=== PATIENT | male | born 1985 | race Caucasian/White ===

== ENCOUNTER 2022-08-08 09:35 | Observation (INO) | payer OTHER ==
[~2022-08-08] VITALS: Ht 182.9 cm; Wt 77.2 kg
[2022-08-08 09:55] LABS: BASOPHILS % (AUTO) 1.1 % (0.0-5.0); EOSINOPHILS % (AUTO) 1.9 % (0.0-8.0); HEMATOCRIT 45.2 % (42-54); LYMPHOCYTES % (AUTO) 21.8 % (21.0-51.0); MEAN CORPUSCULAR HEMOGLOBIN 29.8 pg (27.0-33.0); MEAN CORPUSCULAR HGB CONC 34.1 g/dL (32.0-36.0); MEAN CORPUSCULAR VOLUME 87.4 fL (79-99); MONOCYTES % (AUTO) 8.3 % (3.0-13.0); NEUTROPHILS % (AUTO) 66.7 % (40.0-77.0); PLATELET COUNT (AUTO) 216 K/uL (130-400); RED BLOOD CELL COUNT(AUTO) 5.17 MIL/uL (4.50-6.20); RED CELL DISTRIBUTION WIDTH 12.3 % (11.0-15.5); WHITE BLOOD COUNT (AUTO) 6.4 K/uL (4.8-10.8)
[2022-08-08 10:17] LABS: POTASSIUM 3.9 mmol/L (3.5-5.1)
[2022-08-08 10:21] LABS: ALBUMIN 4.4 g/dL (3.5-5.0); TOTAL PROTEIN, SERUM 7.5 g/dL (6.0-8.3)
[2022-08-08] MEDS ORDERED: ASPIRIN 325MG EC TAB PO ONE (10:30)
[2022-08-08] MEDS: NITROGLYCERIN 0.4 MG SL TAB SL PRN (11:02)
[2022-08-08] MEDS ORDERED: ACETAMINOPHEN 325 MG TAB PO PRN ×2 (12:30)
[2022-08-08] MEDS ORDERED: ONDANSETRON 4MG INJ IV PRN (12:30)
[2022-08-08 14:15] LABS: CREATINE KINASE, TOTAL 111 U/L (21-232); MYOGLOBIN 51 ng/mL (10-92)
[2022-08-08 14:30] LABS: APPEARANCE,URINE CLEAR (CLEAR); BILIRUBIN,URINE NEGATIVE (NEGATIVE); COLOR,URINE COLORLESS (YELLOW); GLUCOSE, URINE (UA) NEGATIVE (NEGATIVE); KETONES,URINE NEGATIVE (NEGATIVE); LEUKOCYTE ESTERASE ,URINE NEGATIVE Leu/uL (NEGATIVE); NITRATE,URINE NEGATIVE (NEGATIVE); OCCULT BLOOD,URINE NEGATIVE (NEGATIVE); PROTEIN,URINE NEGATIVE (NEGATIVE); UROBILINOGEN,URINE 0.2 mg/dL (0.2-1.0)
[2022-08-08 14:32] LABS: RBC,URINE 0-1 /HPF (0-1); SQUAMOUS EPITHELIAL CELL,UR RARE /HPF (0-2); WBC,URINE 0-1 /HPF (0-1)
[2022-08-08 14:38] LABS: AMPHET/METH SCREEN,URINE NEGATIVE (NEGATIVE); BARBITURATE SCREEN, URINE NEGATIVE (NEGATIVE); BENZODIAZEPINES SCREEN,URINE NEGATIVE (NEGATIVE); CANNABINOID SCREEN,URINE NEGATIVE (NEGATIVE); COCAINE SCREEN,URINE NEGATIVE (NEGATIVE); OPIATE SCREEN,URINE NEGATIVE (NEGATIVE); PHENCYCLIDINE SCREEN,URINE NEGATIVE (NEGATIVE)
[2022-08-08] MEDS ORDERED: MORPHINE 2 MG SYG IVP PRN (15:00)
[2022-08-08 16:00] VITALS: BP 147/82
[2022-08-08 17:36] LABS: CHOLESTEROL 156 mg/dL (<200); HDL CHOLESTEROL 56 mg/dL (29-71); LDL DIRECT 93 mg/dL (0-99); TRIGLYCERIDES 38 mg/dL (30-200)
[2022-08-08] MEDS ORDERED: IOHEXOL 350 MG/ML 100ML INFUS..BTL IV ONE (19:38)
[2022-08-08 20:00] VITALS: BP 146/84
[2022-08-08] MEDS ORDERED: ATORVASTATIN 20 MG TABLET PO SCH (21:00)
[2022-08-08] MEDS ORDERED: METOPROLOL TARTRATE 25 MG TAB PO SCH (21:00)
[2022-08-08] MEDS: FAMOTIDINE 20MG VIAL IV SCH (21:15)
[2022-08-09] VITALS: BP 146/84
[2022-08-09 04:00] VITALS: BP 107/77
[2022-08-09 08:00] VITALS: BP 122/68
[2022-08-09] MEDS: FAMOTIDINE 20MG VIAL IV SCH (09:00)
[2022-08-09] MEDS ORDERED: ASPIRIN 81 MG EC TAB PO SCH (09:00)
[2022-08-09] MEDS ORDERED: ENOXAPARIN SODIUM 30 MG/0.3 ML SQ SCH (09:00)
[2022-08-09 12:00] VITALS: BP 130/73
[2022-08-09 16:00] VITALS: BP 139/85
[2022-08-09] MEDS ORDERED: AEC81 PO (16:51)
[2022-08-09] MEDS ORDERED: ATOR20TA65 PO (16:51)
== END 2022-08-09 19:00 | disposition home or self-care (01) ==
LOC: EDH 09:35 → EDHIP 09:36 → 3CH 14:30
PROVIDERS: ADMIT Hospitalist; ATTEND Hospitalist
DX: R07.89 Other chest pain (principal); G47.00 Insomnia, unspecified; K59.00 Constipation, unspecified; Z79.82 Long term (current) use of aspirin; Z79.899 Other long term (current) drug therapy
CPT/HCPCS: 96374; 99285; 82550 ×3; 83874 ×3; 84484 ×5; 80061; 80053; 80305; 85025; 81001; 36415 ×2; 71045; 74174; 71275; 93015; 93306; 93356; G0378 ×29; J3490; Q9967